=== PATIENT | female | born 2000 | race Caucasian/White ===

== ENCOUNTER 2024-01-04 00:49 | Emergency (ER) | payer OTHER, SELFPAY ==
--- NOTE | 2024-01-04 | ECG_ITS ---
Test Reason : chest pain Blood Pressure : / mmHG Vent. Rate : 089 BPM Atrial Rate : 089 BPM P-R Int : 130 ms QRS Dur : 072 ms QT Int : 354 ms P-R-T Axes : 055 064 036 degrees QTc Int : 430 ms Normal sinus rhythm Nonspecific ST abnormality Abnormal ECG No previous ECGs available Referred By: Generic ED Physician Electronically Signed By:Acosta Cano
--- NOTE | ~2024-01-04 | XR_ITS ---
EXAMINATION: XR CHEST CLINICAL INFORMATION: Chest pain. Pain on inspiration. COMPARISON: None available. TECHNIQUE: 2 views of the chest were obtained. FINDINGS: Normal appearance of the cardiomediastinal structures. No effusions or pneumothoraces. Normal pattern of pulmonary vasculature. No focal pulmonary consolidation. No peribronchial wall thickening. No skeletal abnormalities identified. XR/XR chest 2V IMPRESSION: Normal chest. Lungs clear. No pneumothoraces. Electronically signed by: Chaparro Lewis MD 01/04/2024 02:00 AM BUNNY BYNUM
[2024-01-04 01:01] VITALS: BP 135/76; PULSE 93; RESP 18; TEMP 37.1; O2SAT 99; BMI 32.3
[2024-01-04 01:33] LABS: MANUAL DIFF FLAG NO
[2024-01-04 01:47] LABS: Alanine Aminotransferase 14 U/L (0-31); Albumin Level 3.7 g/dL (3.5-5.0); Alkaline Phosphatase 78 U/L (39-117); Anion Gap 14 (12-20); Aspartate Amino Transferase 18 U/L (5-31); Bilirubin Total 0.2 mg/dL (0.0-1.0); Blood Urea Nitrogen 6 mg/dL (9-16); Calcium 8.9 mg/dL (8.4-10.2); Carbon Dioxide 23 mmol/L (22-29); Chloride 108 mmol/L (96-108); Creatinine Clr Calc Pharmacy 140.5; Estimated Glomerular Filt Rate > 60; Glucose Random 101 mg/dL (60-115); Potassium 3.8 mmol/L (3.3-5.1); Sodium 141 mmol/L (135-145); Total Protein 6.7 g/dL (6.5-8.0)
[2024-01-04 01:48] LABS: Basophils Percent Auto 0.4 % (0-2); Eosinophils Absolute Auto 0.3 X10*3/uL (0.0-0.4); Eosinophils Percent Auto 3.8 % (0-4); Hematocrit 34.9 % (37.0-47.0); Hemoglobin 11.9 g/dl (12.0-16.0); Imm Gran Abs Auto 0.01 X10*3/uL (0.00-0.03); Imm Gran Pct Auto 0.1 % (0.0-0.4); Lymphocytes Absolute Auto 2.6 X10*3/uL (1.2-4.9); Lymphocytes Percent Auto 33.8 % (20-40); Mean Corpuscular HGB Conc 34.1 g/dl (31.0-35.0); Mean Corpuscular Hemoglobin 29.1 pg (27.0-33.0); Mean Corpuscular Volume 85.3 fL (80.0-98.0); Monocytes Absolute Auto 0.7 X10*3/uL (0.1-1.2); Monocytes Percent Auto 8.8 % (2-11); Neutrophils Absolute Auto 4.1 x10*3/uL (2.0-8.3); Neutrophils Percent Auto 53.1 % (45-73); Platelet Count 258 X10*3/uL (160-400); Red Blood Count 4.09 X10*6/uL (4.20-5.50); Red Cell Distribution Width 12.5 % (11.0-16.0); White Blood Count 7.8 X10*3/uL (4.8-10.8)
[2024-01-04 02:03] LABS: Troponin-I High Sensitivity < 2.7 ng/L (<3.5-17.0)
[2024-01-04 02:19] LABS: Influenza A PCR NEGATIVE (Negative); Influenza B PCR NEGATIVE (Negative); Resp Syncy Virus RNA Qual PCR NEGATIVE (Negative); SARS COV2 PCR INHOUSE NEGATIVE (Negative)
[2024-01-04 04:00] VITALS: BP 107/82; PULSE 72; RESP 16; TEMP 36.9; O2SAT 95
--- NOTE | 2024-01-04 04:37 | ED.CHESTPAIN ---
HPI - Chest Pain General Chief Complaint: Chest Pain Stated Complaint: diff breathing, chest pain Time Seen by Provider: 01/04/24 04:30 Source: patient and family Mode of arrival: ambulatory Limitations: no limitations History of Present Illness ED Provider: Dr. Elif Dougherty HPI narrative: Patient comes to the emergency room complaining of 4 days of chest congestion, bilateral chest pain with deep inspirations. Subjective fever. Sometimes hurts taking big breaths. Patient denies any coughing. Denies shortness of breath. Related Data Previous Rx's ?Medication ?Instructions ?Recorded ibuprofen 600 mg tablet 600 mg PO TID PRN fever or pain 01/04/24 #30 tabs Allergies Allergy/AdvReac Type Severity Reaction Status Date / Time amoxicillin Allergy Rash Verified 01/04/24 01:06 cefprozil [From Cefzil] Allergy Rash Verified 01/04/24 01:06 Review of Systems Review of Systems: Constitutional : No Weight loss, No Fever, No Chills, No Night Sweats, No Fatigue, No Malaise ENT/Mouth : No Hearing loss, No Ear Pain, complaining of mild Nasal Congestion, No Sinus Pain, No Hoarseness, No sore throat, No Rhinorrhea, No Swallowing Difficulty Eyes: No Eye Pain, No Swelling, No Redness, No Foreign Body, No Discharge, No Vision Changes Cardiovascular : No Chest Pain, No SOB, No Dyspnea on Exertion, No Orthopnea, No Edema, No Palpitations Respiratory : Denies coughing, complaining of discomfort taking big breaths, Gastrointestinal : No Nausea, No Vomiting, No Diarrhea, No Constipation, No abdominal Pain, No Hematochezia, No Melena Genitourinary : no irregular bleeding, No Dysuria, No Urinary Frequency, No Hematuria, No Urinary Incontinence, No Urgency, No Flank Pain, No Urinary Flow Changes, No Hesitancy Musculoskeletal : No joint pain, No Myalgias, No Joint Swelling Skin : No Skin Lesions, No rash Neuro : No Weakness, No Numbness, No Paresthesias, No Loss of Consciousness, No Dizziness, No Headache Psych : No Anxiety/Panic, No Depression, No SI/HI/AH/VH, No Social Issues, Heme/Lymph: No Bruising, No Bleeding,No Lymphadenopathy Endocrine : No Polyuria, No Polydipsia, No Temperature Intolerance PMFSH Social History Social History Advance Directives: No Advance Directives Information Provided: No Do you have a plan to hurt others: No Plan Physical Exam Vital Signs: Vital Signs: Last Vital Signs Temp 98.7 F 01/04/24 01:01 Pulse 93 01/04/24 01:01 Resp 18 01/04/24 01:01 BP 135/76 01/04/24 01:01 Pulse Ox 99 01/04/24 01:01 O2 Del Method Room Air 01/04/24 01:01 BMI result Body Mass Index 32.3 Const: Other: Appearance: Alert. Oriented X3. No acute distress. Eyes: Pupils equal, round and reactive to light. ENT: Pharynx normal. Neck: Normal inspection. Neck supple. No lymph nodes noted. No crepitus CVS: Normal heart rate and rhythm. Pulses normal. Normal S1 and S2 Respiratory: No respiratory distress. Breath sounds normal. No Wheezing. No rales Abdomen: Soft and nontender. No rigidity. No distention. Skin: Skin warm and dry. Normal skin color. Normal skin turgor. Extremities: No lower extremity edema. No Lacerations. No Rash Neuro: Oriented X 3. No motor deficit. No sensory deficit. Moving all extremities. No slurred speech. CN 2 through 12 grossly intact Psych: calm, cooperative, normal affect Medical Decision Making Medical Decision Making [facility] Narrative: My interpretation of labs, normal hematology chemistry and serology, patient tested negative for RSV COVID and flu -chest x-ray: No acute abnormality. -discussed with the patient that she likely has pleurisy. -vital signs within normal limits Lab Data [facility] Lab Attestation statement: I reviewed the patient's lab results. 01/04/24 01:26 01/04/24 01:26 Labs: Lab Results 01/04/24 01/04/24 Range/Units 01:26 01:27 WBC 7.8 (4.8-10.8) X10*3/uL RBC 4.09 L (4.20-5.50) X10*6/uL Hgb 11.9 L (12.0-16.0) g/dl Hct 34.9 L (37.0-47.0) % MCV 85.3 (80.0-98.0) fL MCH 29.1 (27.0-33.0) pg MCHC 34.1 (31.0-35.0) g/dl RDW 12.5 (11.0-16.0) % Plt Count 258 (160-400) X10*3/uL MPV 10.0 (9.4-12.3) fL Immature Gran % (Auto) 0.1 (0.0-0.4) % Neut % (Auto) 53.1 (45-73) % Lymph % (Auto) 33.8 (20-40) % [place] % (Auto) 8.8 (2-11) % Eos % (Auto) 3.8 (0-4) % Baso % (Auto) 0.4 (0-2) % Lymph # (Auto) 2.6 (1.2-4.9) X10*3/uL [place] # (Auto) 0.7 (0.1-1.2) X10*3/uL Eos # (Auto) 0.3 (0.0-0.4) X10*3/uL Baso # (Auto) 0.0 (0.0-0.2) X10*3/uL Abs Immat Gran (auto) 0.01 (0.00-0.03) X10*3/uL Absolute Neuts (auto) 4.1 (2.0-8.3) x10*3/uL Absolute Nucleated RBC 0.000 (0.0-0.012) X10*3/uL Nucleated RBC % (auto) 0.0 (0.0-0.2) /100WBC Sodium 141 (135-145) mmol/L Potassium 3.8 (3.3-5.1) mmol/L Chloride 108 (96-108) mmol/L Carbon Dioxide 23 (22-29) mmol/L Anion Gap 14 (12-20) BUN 6 L (9-16) mg/dL Creatinine 0.64 (0.5-1.4) mg/dL Estim Creat Clear Calc 140.5 Estimated GFR > 60 Random Glucose 101 (60-115) mg/dL Calcium 8.9 (8.4-10.2) mg/dL Total Bilirubin 0.2 (0.0-1.0) mg/dL AST 18 (5-31) U/L ALT 14 (0-31) U/L Alkaline Phosphatase 78 (39-117) U/L Troponin I High Sens < 2.7 (<3.5-17.0) ng/L Total Protein 6.7 (6.5-8.0) g/dL Albumin 3.7 (3.5-5.0) g/dL Influenza Type A (PCR) NEGATIVE (Negative) Influenza Type B (PCR) NEGATIVE (Negative) RSV RNA Qual (PCR) NEGATIVE (Negative) SARS-CoV-2 RNA (RT-PCR) NEGATIVE (Negative) Independent Interpretation I performed an independent interpretation of an: Plain X-Ray Radiology Impression Discussion of test interpretation with radiology: I have reviewed the radiologist's reading. Radiologist Impression: Normal appearance of the cardiomediastinal structures. No effusions or pneumothoraces. Normal pattern of pulmonary vasculature. No focal pulmonary consolidation. No peribronchial wall thickening. No skeletal abnormalities identified. XR/XR chest 2V IMPRESSION: Normal chest. Lungs clear. No pneumothoraces. Discharge Plan Discharge Clinical Impression: Pleurisy Patient Disposition: Home, Self-Care Instructions: Pleurisy (ED) Additional Instructions: Please follow-up with your primary care physician tomorrow. If you have any worsening or new symptoms, please return to the emergency room or call 911 Prescriptions: New ibuprofen 600 mg tablet 600 mg PO TID PRN (Reason: fever or pain) Qty: 30 0RF Stand Alone Forms: Work/School Release Print Language: Sudanese
[2024-01-04 04:50] VITALS: BP 107/82; PULSE 72; RESP 16; TEMP 36.9; O2SAT 95
== END 2024-01-04 04:50 | disposition home or self-care (01) ==
PROVIDERS: Emergency Provider Emergency Medicine
DX: R09.1 Pleurisy (principal); R07.89 Other chest pain; R50.9 Fever, unspecified; R06.02 Shortness of breath; Z03.818 Encounter for observation for suspected exposure to other biological agents ruled out; Z79.899 Other long term (current) drug therapy
CPT/HCPCS: 0241U; 36415; 71046; 80053; 84484; 85025; 93005; 99284

== ENCOUNTER → 2024-01-04 01:09 | Outpatient (BNV) | payer OTHER, SELFPAY | PROVIDERS: Emergency Provider Emergency Medicine; Visit Provider Internal Medicine Cardiovascular Disease | DX: R07.9 Chest pain, unspecified (principal) | CPT/HCPCS: 93010 ==

== ENCOUNTER 2024-07-16 02:17 | Emergency (ER) | payer OTHER, SELFPAY ==
--- NOTE | ~2024-07-16 | CT_ITS ---
CLINICAL HISTORY: epigastric pain CT abdomen and pelvis with contrast Comparison: None Findings: Distended stomach with retained contents, nonspecific possibly physiologic. However fluid distended slightly thick-walled small bowel loops. Inflammatory changes in the pericecal region with liquid stool and mild wall thickening concerning for potential appendicitis, although discrete appendix is not identified. Other acute nonspecific enterocolitis considered as well, Including potential inflammatory bowel disease. No features of acute diverticulitis. No free fluid or free air. Lung bases clear. Heart size normal. Liver, gallbladder, biliary tree, pancreas, spleen, adrenals, kidneys and aorta are normal. Left kidney incompletely rotated. No pathologic adenopathy. Urinary bladder and pelvic viscera intact. Bones and soft tissues unremarkable. Impression: Distended stomach with retained contents, nonspecific. Fluid distended mildly thick-walled small bowel loops. Liquid stool in the colon. Correlation for nonspecific enterocolitis including inflammatory bowel disease. Changes more pronounced at the cecum and terminal ileum. Discrete appendix is not identified although if appendix remains, possibility of appendicitis considered. Consider follow-up CT with water-soluble oral contrast. This document has been electronically signed by: Maxwell Lee MD on 07/16/2024 06:14:35
[2024-07-16 02:19] VITALS: BP 141/84; PULSE 124; RESP 20; TEMP 37.3; O2SAT 97; BMI 31.9
--- NOTE | 2024-07-16 03:02 | ECG_ITS ---
Test Reason : ABD PAIN Blood Pressure : */* mmHG Vent. Rate : 92 BPM Atrial Rate : 92 BPM P-R Int : 140 ms QRS Dur : 74 ms QT Int : 362 ms P-R-T Axes : 68 67 43 degrees QTcB Int : 447 ms Normal sinus rhythm Normal ECG When compared with ECG of 04-Jan-2024 01:09, No significant change was found Referred By: Elif Dougherty Electronically Signed By: SYLVIA THOMPSON MD
[2024-07-16 03:07] LABS: MANUAL DIFF FLAG NO
[2024-07-16 03:08] LABS: Basophils Percent Auto 0.3 % (0-2); Eosinophils Percent Auto 0.4 % (0-4); Hematocrit 39.8 % (37.0-47.0); Hemoglobin 13.7 g/dl (12.0-16.0); Imm Gran Abs Auto 0.02 X10*3/uL (0.00-0.03); Imm Gran Pct Auto 0.2 % (0.0-0.4); Lymphocytes Absolute Auto 1.4 X10*3/uL (1.2-4.9); Lymphocytes Percent Auto 13.6 % (20-40); Mean Corpuscular HGB Conc 34.4 g/dl (31.0-35.0); Mean Corpuscular Hemoglobin 28.4 pg (27.0-33.0); Mean Corpuscular Volume 82.6 fL (80.0-98.0); Mean Platelet Volume 9.4 fL (9.4-12.3); Monocytes Absolute Auto 0.5 X10*3/uL (0.1-1.2); Monocytes Percent Auto 4.9 % (2-11); Neutrophils Absolute Auto 8.1 x10*3/uL (2.0-8.3); Neutrophils Percent Auto 80.6 % (45-73); Platelet Count 269 X10*3/uL (160-400); Red Blood Count 4.82 X10*6/uL (4.20-5.50); Red Cell Distribution Width 12.8 % (11.0-16.0); White Blood Count 10.1 X10*3/uL (4.8-10.8)
--- NOTE | 2024-07-16 03:14 | ED_ITS ---
HPI - Nausea/Vomiting/Diarrhea General Chief complaint: Nausea/Vomiting/Diarrhea Stated complaint: abd pain/chest pain Time Seen by Provider: 07/16/24 02:59 Source: patient Mode of arrival: ambulatory Limitations: no limitations History of Present Illness ED Provider: Dr. Elif Dougherty HPI Narrative: Patient comes to the emergency room complaining of nausea vomiting and diarrhea that started approximately 12 hours ago. Patient states that any thing that she tries to eat or drink, she vomits or gets diarrhea very shortly after. Patient states that she recently finished 5 courses of antibiotics for strep and Haemophilus influenzae. Patient denies any fever or chills. Patient complaining of epigastric pain, constant, nonradiating, attempts gets worse and then diminishes. Related Data Previous Rx's ?Medication ?Instructions ?Recorded ibuprofen 600 mg tablet 600 mg PO TID PRN fever or pain 01/04/24 #30 tabs loperamide 2 mg tablet 2 mg PO Q4H PRN loose stool #20 07/16/24 tabs ondansetron 4 mg disintegrating 4 mg PO Q6H PRN nausea and 07/16/24 tablet vomiting #20 tabs prochlorperazine maleate 5 mg 5 mg PO TID PRN nausea and 07/16/24 tablet (Compazine) vomiting #14 tabs Allergies Allergy/AdvReac Type Severity Reaction Status Date / Time amoxicillin Allergy Rash Verified 07/16/24 02:21 cefprozil [From Cefzil] Allergy Rash Verified 07/16/24 02:21 Review of Systems 2 Review of Systems: Constitutional : No Weight loss, No Fever, No Chills, No Night Sweats, No Fatigue, No Malaise ENT/Mouth : No Hearing loss, No Ear Pain, No Nasal Congestion, No Sinus Pain, No Hoarseness, No sore throat, No Rhinorrhea, No Swallowing Difficulty Eyes: No Eye Pain, No Swelling, No Redness, No Foreign Body, No Discharge, No Vision Changes Cardiovascular : No Chest Pain, No SOB, No Dyspnea on Exertion, No Orthopnea, No Edema, No Palpitations Respiratory : No Cough, No Sputum, No Wheezing, No Smoke Exposure, No Dyspnea Gastrointestinal : Complaining of nausea vomiting and diarrhea, complaining of epigastric pain Genitourinary : no irregular bleeding, No Dysuria, No Urinary Frequency, No Hematuria, No Urinary Incontinence, No Urgency, No Flank Pain, No Urinary Flow Changes, No Hesitancy Musculoskeletal : No joint pain, No Myalgias, No Joint Swelling Skin : No Skin Lesions, No rash Neuro : No Weakness, No Numbness, No Paresthesias, No Loss of Consciousness, No Dizziness, No Headache Psych : No Anxiety/Panic, No Depression, No SI/HI/AH/VH, No Social Issues, Heme/Lymph: No Bruising, No Bleeding,No Lymphadenopathy Endocrine : No Polyuria, No Polydipsia, No Temperature Intolerance [facility] Past Medical History Medical History (Updated 07/16/24 @ 07:21 by Elif Dougherty MD) IBS (irritable bowel syndrome) Social History Social History Smoked in Last 30 Days: No Use of substances other than those prescribed or required for medical reasons: No Advance Directives: No Advance Directives Information Provided: No Patient : No Physical Exam 2 Vital Signs: Vital Signs: Last Vital Signs Temp 98.4 F 07/16/24 06:18 Pulse 102 H 07/16/24 06:18 Resp 18 07/16/24 06:18 BP 104/60 07/16/24 06:18 Pulse Ox 98 07/16/24 06:18 O2 Del Method Room Air 07/16/24 06:18 BMI result Body Mass Index 31.9 Const: Other: Appearance: Alert. Oriented X3. No acute distress. Eyes: Pupils equal, round and reactive to light. ENT: Pharynx normal. Neck: Normal inspection. Neck supple. No lymph nodes noted. No crepitus CVS: Normal heart rate and rhythm. Pulses normal. Normal S1 and S2 Respiratory: No respiratory distress. Breath sounds normal. No Wheezing. No rales Abdomen: Soft , mild tenderness to palpation in the epigastric area, no rebound or guarding, No rigidity. No distention. Skin: Skin warm and dry. Normal skin color. Normal skin turgor. Extremities: No lower extremity edema. No Lacerations. No Rash Neuro: Oriented X 3. No motor deficit. No sensory deficit. Moving all extremities. No slurred speech. CN 2 through 12 grossly intact Psych: calm, cooperative, normal affect Course Course Course Narrative: Patient receiving IV fluids, Zofran, morphine, Pepcid Patient has history of finishing 5 courses of antibiotics within the last few months. Patient states that she has diarrhea but it is not copious. If we are able to obtain a sample, we will check for C diff however, the story itself it is not sounding so far very convincing for a C diff infection Medications Administered Discontinued Medications Generic Name Dose Route Start Last Admin Trade Name Kb PRN Reason Stop Dose Admin Famotidine 20 mg 07/16/24 03:12 07/16/24 03:40 Famotidine/Pf 20 Mg/2 Ml Vial IVPUSH 07/16/24 03:13 20 mg ONCE ONE Administration Lactated Ringer's 2,000 mls @ 999 mls/hr 07/16/24 03:30 07/16/24 05:40 Lr IV 07/16/24 05:30 Infused .Q2H1M MILLIE Infusion Iohexol 85 ml 07/16/24 04:06 07/16/24 04:10 Iohexol 350 Mg/Ml 100 Ml Infus..Btl IV 07/16/24 04:07 85 ml ONCE ONE Administration Loperamide HCl 4 mg 07/16/24 03:14 07/16/24 05:38 Loperamide Hcl 2 Mg Capsule PO 07/16/24 03:15 4 mg ONCE ONE Administration Morphine Sulfate 2 mg 07/16/24 03:13 07/16/24 03:40 Morphine Sulfate 2 Mg/Ml Cartridge IVPUSH 07/16/24 03:14 2 mg ONCE ONE Administration Protocol Ondansetron HCl 4 mg 07/16/24 03:12 07/16/24 03:38 Ondansetron Hcl 4 Mg/2 Ml Vial IVPUSH 07/16/24 03:13 4 mg ONCE ONE Administration Prochlorperazine Edisylate 10 mg 07/16/24 04:22 07/16/24 04:26 Prochlorperazine Edisylate 10 Mg/2 Ml Vial IVPUSH 07/16/24 04:23 10 mg ONCE ONE Administration Medical Decision Making Medical Decision Making MDM Narrative: My interpretation of labs: No significant abnormality in patient's hematology and chemistry, normal LFTs, normal lipase, hCG negative, urinalysis negative for UTI C diff toxin negative CT scan of the abdomen: Distended stomach with retained contents, nonspecific. There is liquid stool in the colon, patient known to have diarrhea and patient also has history of IBS. In the CT scan than mentioned that they could not see them appendix, under could be a possibility of appendicitis. However, patient has history of appendectomy. Also, patient has no pain whatsoever in the lower quadrants. No rebound or guarding. Patient's white blood cell count normal. Appendicitis or remaining appendix/appendicitis is not suspected. Patient states that after Zofran and medication for diarrhea, she is feeling much better and is asymptomatic Patient likely had IBS versus gastroenteritis, versus viral illness Patient feels much better and would like to be discharged home. Differential Diagnosis Differential Diagnoses: The differential diagnosis associated with the presentation includes (As above) Admission/Observation Consideration of admission/observation: Escalation of care including admission/observation considered (Given patient's past medical history and presentation, observation was considered) Lab Data MDM Lab Attestation statement: I reviewed the patient's lab results. 07/16/24 03:01 07/16/24 03:01 Labs: Lab Results 07/16/24 07/16/24 Range/Units 03:01 05:36 WBC 10.1 (4.8-10.8) X10*3/uL RBC 4.82 (4.20-5.50) X10*6/uL Hgb 13.7 (12.0-16.0) g/dl Hct 39.8 (37.0-47.0) % MCV 82.6 (80.0-98.0) fL MCH 28.4 (27.0-33.0) pg MCHC 34.4 (31.0-35.0) g/dl RDW 12.8 (11.0-16.0) % Plt Count 269 (160-400) X10*3/uL MPV 9.4 (9.4-12.3) fL Immature Gran % (Auto) 0.2 (0.0-0.4) % Neut % (Auto) 80.6 H (45-73) % Lymph % (Auto) 13.6 L (20-40) % [place] % (Auto) 4.9 (2-11) % Eos % (Auto) 0.4 (0-4) % Baso % (Auto) 0.3 (0-2) % Lymph # (Auto) 1.4 (1.2-4.9) X10*3/uL [place] # (Auto) 0.5 (0.1-1.2) X10*3/uL Eos # (Auto) 0.0 (0.0-0.4) X10*3/uL Baso # (Auto) 0.0 (0.0-0.2) X10*3/uL Abs Immat Gran (auto) 0.02 (0.00-0.03) X10*3/uL Absolute Neuts (auto) 8.1 (2.0-8.3) x10*3/uL Absolute Nucleated RBC 0.000 (0.0-0.012) X10*3/uL Nucleated RBC % (auto) 0.0 (0.0-0.2) /100WBC Sodium 139 (135-145) mmol/L Potassium 4.3 (3.3-5.1) mmol/L Chloride 105 (96-108) mmol/L Carbon Dioxide 23 (22-29) mmol/L Anion Gap 15 (12-20) BUN 10 (9-16) mg/dL Creatinine 0.66 (0.5-1.4) mg/dL Estim Creat Clear Calc 135.2 Estimated GFR > 60 Random Glucose 103 (60-115) mg/dL Calcium 9.0 (8.4-10.2) mg/dL Total Bilirubin 0.5 (0.0-1.0) mg/dL Direct Bilirubin 0.1 (0.0-0.5) mg/dL AST 35 H (5-31) U/L ALT 18 (0-31) U/L Alkaline Phosphatase 95 (39-117) U/L Total Protein 7.5 (6.5-8.0) g/dL Albumin 3.9 (3.5-5.0) g/dL Lipase 21 (8-78) U/L Beta HCG, Quant < 2 mIU/mL Urine Color Yellow Urine Appearance Clear Urine pH 6.0 (5.0-9.0) Ur Specific [place] >= 1.030 H (1.005-1.025) Urine Protein Negative (Neg-Trace) mg/dL Urine Glucose (UA) Negative (Negative) mg/dL Urine Ketones 15 (Negative) mg/dL Urine Blood Negative (Negative) Urine Nitrite Negative (Negative) Ur Leukocyte Esterase Negative (Negative) Urine RBC 0-2 (0-2) /HPF Urine WBC 0-5 (0-5) /HPF Ur Squamous Epith Cells 3-5 (0-2) /HPF Urine Bacteria Trace (None Seen) Hyaline Casts 0-2 (0-2) /LPF C. difficile Tox B Gene NEGATIVE (Negative) Independent Interpretation I performed an independent interpretation of an: CT Scan Radiology Impression Discussion of test interpretation with radiology: I have reviewed the radiologist's reading. Radiologist Impression: Distended stomach with retained contents, nonspecific possibly physiologic. However fluid distended slightly thick-walled small bowel loops. Inflammatory changes in the pericecal region with liquid stool and mild wall thickening concerning for potential appendicitis, although discrete appendix is not identified. Other acute nonspecific enterocolitis considered as well, Including potential inflammatory bowel disease. No features of acute diverticulitis. No free fluid or free air. Lung bases clear. Heart size normal. Liver, gallbladder, biliary tree, pancreas, spleen, adrenals, kidneys and aorta are normal. Left kidney incompletely rotated. No pathologic adenopathy. Urinary bladder and pelvic viscera intact. Bones and soft tissues unremarkable. Impression: Distended stomach with retained contents, nonspecific. Fluid distended mildly thick-walled small bowel loops. Liquid stool in the colon. Correlation for nonspecific enterocolitis including inflammatory bowel disease. Changes more pronounced at the cecum and terminal ileum. Discrete appendix is not identified although if appendix remains, possibility of appendicitis considered. Consider follow-up CT with water-soluble oral contrast. Independent Historian Clinical information obtained from an independent historian. History obtained from or confirmed by: Parent Critical Care Time Critical Care Time Critical Care Time: Yes Total Critical Care Time: 35 Attestation: I have personally provided critical care time. Time includes review of lab data, radiology results, discussion with consultants, and monitoring for potential decompensation. Intervention performed as documented. Discharge Plan Discharge Clinical Impression: Nausea vomiting and diarrhea, Acute upper abdominal pain Patient Disposition: Home, Self-Care Instructions: Acute Nausea and Vomiting (DC), Acute Diarrhea (ED), Abdominal Pain (ED) Additional Instructions: Please follow-up with your primary care physician tomorrow. If you have any worsening or new symptoms, please return to the emergency room or call 911 Prescriptions: New ondansetron 4 mg tablet,disintegrating 4 mg PO Q6H PRN (Reason: nausea and vomiting) Qty: 20 0RF prochlorperazine maleate [Compazine] 5 mg tablet 5 mg PO TID PRN (Reason: nausea and vomiting) Qty: 14 0RF Rx Instructions: Use only if Zofran does not work to help control the nausea/vomiting loperamide 2 mg tablet 2 mg PO Q4H PRN (Reason: loose stool) Qty: 20 0RF Rx Instructions: administer after each loose stool until symptoms controlled; do not exceed 8 mg per 24 hrs No Action ibuprofen 600 mg tablet 600 mg PO TID PRN (Reason: fever or pain) Qty: 30 0RF Stand Alone Forms: Work/School Release Print Language: Rw[place]an
[2024-07-16] MEDS: ondansetron HCL 4 MG/2 ML VIAL IVPUSH (03:38)
[2024-07-16] MEDS: Lactated Ringers 2,000 ML 999 ML IV (03:38)
[2024-07-16 03:40] VITALS: RESP 18
[2024-07-16] MEDS: Morphine Sulfate 2 MG/ML CARTRIDGE IVPUSH (03:40)
[2024-07-16] MEDS: Famotidine/PF 20 MG/2 ML VIAL IVPUSH (03:40)
[2024-07-16 03:51] VITALS: BP 107/54; PULSE 99; RESP 16; TEMP 36.9; O2SAT 100
[2024-07-16 03:56] LABS: Alanine Aminotransferase 18 U/L (0-31); Albumin Level 3.9 g/dL (3.5-5.0); Alkaline Phosphatase 95 U/L (39-117); Anion Gap 15 (12-20); Aspartate Amino Transferase 35 U/L (5-31); Bilirubin Direct 0.1 mg/dL (0.0-0.5); Bilirubin Total 0.5 mg/dL (0.0-1.0); Blood Urea Nitrogen 10 mg/dL (9-16); Carbon Dioxide 23 mmol/L (22-29); Chloride 105 mmol/L (96-108); Creatinine Clr Calc Pharmacy 135.2; Estimated Glomerular Filt Rate > 60; Glucose Random 103 mg/dL (60-115); HCG Quantitative < 2 mIU/mL; Lipase 21 U/L (8-78); Potassium 4.3 mmol/L (3.3-5.1); Sodium 139 mmol/L (135-145); Total Protein 7.5 g/dL (6.5-8.0)
--- NOTE | 2024-07-16 03:58 | MHC.EDTECH ---
This pct assumed care of Patient around 0300 ,vitals taken ,ekg taken and was read by Provider ,Patient awake watching television ,Patient mom at bedside .Plan of care continue .
[2024-07-16] MEDS: iohexoL 350 MG/ML 100 ML INFUS..BTL 85 ML IV (04:10)
[2024-07-16] MEDS: Prochlorperazine Edisylate 10 MG/2 ML VIAL IVPUSH (04:26)
[2024-07-16] MEDS: Loperamide HCl 2 MG CAPSULE 4 MG PO (05:38)
[2024-07-16 05:44] LABS: Appearance Urine Clear; Color Urine Yellow; Glucose Urine UA Negative (Negative); Leukocyte Esterase Urine Negative (Negative); Nitrite Urine Negative (Negative); Specific Gravity - Urine >= 1.030 (1.005-1.025); Urine Blood Negative (Negative); Urine Ketones 15 mg/dL (Negative); Urine Protein Negative (Neg-Trace)
[2024-07-16 05:49] LABS: Bacteria Urine Trace (None Seen); Hyaline Casts Urine 0-2 /LPF (0-2); RBC Urine 0-2 /HPF (0-2); WBC Urine 0-5 /HPF (0-5)
[2024-07-16 06:18] VITALS: BP 104/60; PULSE 102; RESP 18; TEMP 36.9; O2SAT 98
[2024-07-16 06:45] LABS: CDiff Gene PCR NEGATIVE (Negative)
[2024-07-16 07:18] VITALS: BP 107/59; PULSE 91; RESP 14; TEMP 36.7; O2SAT 97
[2024-07-16 07:34] VITALS: BP 107/59; PULSE 91; RESP 14; TEMP 36.7; O2SAT 97
== END 2024-07-16 07:36 | disposition home or self-care (01) ==
PROVIDERS: Emergency Provider Emergency Medicine; PCP Radiology Vascular & Interventional Radiology
DX: R10.10 Upper abdominal pain, unspecified (principal); R11.2 Nausea with vomiting, unspecified; R19.7 Diarrhea, unspecified
CPT/HCPCS: 36415; 74177; 80048; 80076; 81001; 83690; 84702; 85025; 87493; 93005; 96361; 96374; 96375; 99284; 99285; J0737; J1308; J2270; J2405; J7120; Q9967

== ENCOUNTER → 2024-07-16 03:02 | Outpatient (BNV) | payer OTHER, SELFPAY | PROVIDERS: Emergency Provider Emergency Medicine; PCP Radiology Vascular & Interventional Radiology; Visit Provider Internal Medicine Cardiovascular Disease | DX: R10.9 Unspecified abdominal pain (principal) | CPT/HCPCS: 93010 ==

== ENCOUNTER → 2024-07-16 03:12 | Outpatient (BNV) | payer OTHER, SELFPAY | PROVIDERS: Emergency Provider Emergency Medicine; PCP Radiology Vascular & Interventional Radiology; Visit Provider Radiology Diagnostic Radiology | DX: R19.7 Diarrhea, unspecified (principal) | CPT/HCPCS: 74177 ==

== ENCOUNTER 2025-02-07 13:59 | Emergency (ER) | payer OTHER, SELFPAY ==
--- OUTSIDE RECORDS SUMMARY | 2023-11-27 15:58 | XMS_ITS | Encounter Summary ---
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 Generating [employer] Name Role Phone Dinorah Bowden MD Primary Care Provider [phone] Encounter Details Date Type Department Care Team (Late st Contact Info) Description 11/27/2023 4:58 PM EDT Hospital Encounter TH HISTORIC ENCOUNTERS EASTERN CONVERSION ONLY Leola Lopez MD [address] [place] [address] Social History Tobacco Use Types Packs/Day Years Used Date Smoking Tobacco: Never Assessed Comments No Sex and Gender Information Value Date Recorded Sex Assigned at Not on file Legal Sex Female 11:46 AM EST Gender Identity Not on file Sexual Orientation Not on file documented as of this encounter Plan of Treatment Not on file documented as of this encounter Visit Diagnoses Not on filedocumented in this encounter 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
--- NOTE | ~2025-02-07 | XR_ITS ---
EXAMINATION: XR CHEST 2 VIEWS HISTORY: coughing, chest pain COMPARISON: Comparison is made with the prior examination dated 01/04/2024. FINDINGS: PA and lateral views of the chest are submitted. The lungs are expanded and clear. There is no pleural effusion, pneumothorax, or pulmonary vascular congestion. The heart is normal in size. The bones are intact. XR/XR chest 2V IMPRESSION: No acute cardiopulmonary abnormality. Electronically signed by: Emory Mccauley MD 02/07/2025 02:24 PM BUNNY
--- NOTE | 2025-02-07 14:01 | ECG_ITS ---
Test Reason : SOB Blood Pressure : */* mmHG Vent. Rate : 116 BPM Atrial Rate : 116 BPM P-R Int : 128 ms QRS Dur : 72 ms QT Int : 310 ms P-R-T Axes : 72 55 37 degrees QTcB Int : 430 ms Sinus tachycardia Otherwise normal ECG When compared with ECG of 16-Jul-2024 03:54, No significant change was found Referred By: Jose Hyde Electronically Signed By: SYLVIA THOMPSON MD
[2025-02-07 14:08] VITALS: BP 137/94; PULSE 122; RESP 20; TEMP 36.6; O2SAT 98; BMI 31.9
--- NOTE | 2025-02-07 14:28 | ED.GENADULT ---
HPI - General Adult General Chief complaint: Upper Respiratory Symptoms Stated complaint: Chest Pain, Throwing Up Time Seen by Provider: 02/07/25 15:02 Source: patient and old records reviewed Mode of arrival: ambulatory Limitations: no limitations History of Present Illness ED Provider: ARLEY BERG narrative: 24-year-old female with past medical history of IBS she is on oral OCPs she did have her tonsils removed about a month ago. 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 This started this morning she then started to have a cough with some chest pain she noted scant hemoptysis in it. She also vomited after coughing she has never had this before. She notes no history of bleeding. She is not a smoker. She denies any other GI bleed symptoms such as bloody or black stool. She feels better now. She states she was healthy yesterday. MD complaint: Hemoptysis Onset (ago): day(s) (1) Location: chest Radiation: non-radiation Severity: moderate Quality: aching Pain Consistency: intermittent Relieving factors: none Exacerbating factors: other Associated symptoms: chest pain, cough and other Treatments prior to arrival: none Related Data Previous Rx's ?Medication ?Instructions ?Recorded ibuprofen 600 mg tablet 600 mg PO TID PRN fever or pain 01/04/24 #30 tabs loperamide 2 mg tablet 2 mg PO Q4H PRN loose stool #20 07/16/24 tabs ondansetron 4 mg disintegrating 4 mg PO Q6H PRN nausea and 07/16/24 tablet vomiting #20 tabs prochlorperazine maleate 5 mg 5 mg PO TID PRN nausea and 07/16/24 tablet (Compazine) vomiting #14 tabs Allergies Allergy/AdvReac Type Severity Reaction Status Date / Time amoxicillin Allergy Rash Verified 02/07/25 14:10 cefprozil (From Cefzil) Allergy Rash Verified 02/07/25 14:10 Review of Systems Review of Systems: Yes all other systems are reviewed and are negative PMFSH Past Medical History Attestation statement: The following information was validated with the patient. Source: old records reviewed Medical History IBS (irritable bowel syndrome) Social History Social History (Updated 02/07/25 @ 15:08 by Skye De La Fuente DO) Patient Tobacco Use Status: Never used Tobacco Advance Directives: No Advance Directives Information Provided: Yes Do you have a plan to hurt others: No Plan Physical Exam ED Vital Signs: Vital Signs - 24 hr 02/07/25 14:08 Temperature 98 F Pulse Rate 122 H Respiratory Rate 20 Blood Pressure 137/94 H Pulse Oximetry 98 Oxygen Delivery Method Room Air BMI result Body Mass Index 31.9 Appearance: Alert. Oriented X3. No acute distress. Eyes: Pupils equal, round and reactive to light. ENT: Pharynx normal. Neck: Normal inspection. Neck supple. CVS: Normal heart rate and rhythm. Pulses normal. Respiratory: No respiratory distress. Breath sounds normal. Abdomen: Soft and nontender. Skin: Skin warm and dry. Normal skin color. Normal skin turgor. Extremities: No lower extremity edema. No calf ttp Neuro: Oriented X 3. No motor deficit. No sensory deficit. Course Course Course Narrative: RmE: 23-year-old female presents to ED for coughing, chest pain, body aches, coughing up blood and chills which began today. 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 Labs EKG chest x-ray swabs ordered Medical Decision Making Medical Decision Making MDM Narrative: 21-year-old female on OCPs with a past medical history of IBS she notes she started to feel sick today with upper respiratory symptoms not feeling well then noted chest pain with the cough she had some scant hemoptysis she has no risk factors for hemoptysis it seems atypical for bronchitis given this started today it is not as if she had a prolonged coughing illness for the last 7 days. She is low probability for PE I am going to obtain a D-dimer. She has mild tachycardia but no hypoxia no signs of DVT. Her pain was associated with cough. It could be bronchitis, viral syndrome, mild hemoptysis she is reliable I will DC home with viral illness and supportive care Differential Diagnosis Differential Diagnoses: The differential diagnosis associated with the presentation includes bronchitis, viral syndrome, mild hemoptysis Admission/Observation Consideration of admission/observation: Escalation of care including admission/observation considered Vital signs and labs reassuring negative workup for bronchitis and PE Lab Data [facility] [place] Lab Attestation statement: I reviewed the patient's lab results. 02/07/25 14:37 02/07/25 14:37 Labs: Lab Results 02/07/25 Range/Units 14:37 WBC 10.6 (4.8-10.8) X10*3/uL RBC 4.67 (4.20-5.50) X10*6/uL Hgb 12.9 (12.0-16.0) g/dl Hct 38.6 (37.0-47.0) % MCV 82.7 (80.0-98.0) fL MCH 27.6 (27.0-33.0) pg MCHC 33.4 (31.0-35.0) g/dl RDW 13.4 (11.0-16.0) % Plt Count 368 D (160-400) X10*3/uL MPV 9.5 (9.4-12.3) fL Immature Gran % (Auto) 0.3 (0.0-0.4) % Neut % (Auto) 73.0 (45-73) % Lymph % (Auto) 19.1 L (20-40) % [place] % (Auto) 5.4 (2-11) % Eos % (Auto) 1.4 (0-4) % Baso % (Auto) 0.8 (0-2) % Lymph # (Auto) 2.0 (1.2-4.9) X10*3/uL [place] # (Auto) 0.6 (0.1-1.2) X10*3/uL Eos # (Auto) 0.2 (0.0-0.4) X10*3/uL Baso # (Auto) 0.1 (0.0-0.2) X10*3/uL Abs Immat Gran (auto) 0.03 (0.00-0.03) X10*3/uL Absolute Neuts (auto) 7.7 (2.0-8.3) x10*3/uL Absolute Nucleated RBC 0.000 (0.0-0.012) X10*3/uL Nucleated RBC % (auto) 0.0 (0.0-0.2) /100WBC PT 10.9 L (11.2-13.5) SEC INR 0.9 (0.9-1.1) APTT 30.2 (26.7-34.1) SEC D-Dimer High Sensitivty 170 NG/ML Sodium 138 (135-145) mmol/L Potassium 4.1 (3.3-5.1) mmol/L Chloride 108 (96-108) mmol/L Carbon Dioxide 25 (22-29) mmol/L Anion Gap 9 L (12-20) BUN 12 (9-16) mg/dL Creatinine 0.64 (0.5-1.4) mg/dL Estim Creat Clear Calc 138.3 Estimated GFR > 60 Random Glucose 102 (60-115) mg/dL Calcium 9.4 (8.4-10.2) mg/dL Total Bilirubin 0.2 (0.0-1.0) mg/dL AST 20 (5-31) U/L ALT 18 (0-31) U/L Alkaline Phosphatase 108 (39-117) U/L Troponin I High Sens < 2.7 (<3.5-17.0) ng/L Total Protein 7.7 (6.5-8.0) g/dL Albumin 4.3 (3.5-5.0) g/dL Beta HCG, Quant < 2 mIU/mL Influenza Type A (PCR) NEGATIVE (Negative) Influenza Type B (PCR) NEGATIVE (Negative) RSV RNA Qual (PCR) NEGATIVE (Negative) SARS-CoV-2 RNA (RT-PCR) NEGATIVE (Negative) S. pyogenes GrpA LIBRA Negative (Negative) Independent Interpretation I performed an independent interpretation of an: EKG and Plain X-Ray (normal ) Interpretation: Rate: 116 Rhythm: sinus tach [place]: normal Normal P waves. Normal VIVI. Normal QRS complex. ST T wave : normal no GAL[place] qTC: 430 prior studies: no acute ischemia The study has been interpreted contemporaneously by me. . Radiology Impression Discussion of test interpretation with radiology: I have reviewed the radiologist's reading. Independent Historian Clinical information obtained from an independent historian. History obtained from or confirmed by: Parent External Record Review External record reviewed: Outpatient record Prescription Management I considered prescription management with: Other Discharge Plan Discharge Clinical Impression: Upper respiratory infection, Atypical chest pain, Cough with hemoptysis Patient Disposition: Home, Self-Care Instructions: Chest Pain (DC), Upper Respiratory Infection (ED), Coughing Up Blood (Hemoptysis) (ED) Additional Instructions: At this time your chest x-ray is normal, you do not have COVID, flu, RSV your strep test was negative. Your labs are all reassuring including negative D-dimer, negative troponin, reassuring labs negative test I would avoid all aspirin products for the next 3 days Return for any worsening symptoms or concerns Suspect this is a self controlled small bleeding due to cough return for any new bleeding or worsening concerns This seems atypical for bronchitis given symptoms started today It could be too soon to tell if you have flu if you continue to have worsening upper respiratory symptoms you might want to retest in the next 48 hours Prescriptions: No Action ibuprofen 600 mg tablet 600 mg PO TID PRN (Reason: fever or pain) Qty: 30 0RF ondansetron 4 mg tablet,disintegrating 4 mg PO Q6H PRN (Reason: nausea and vomiting) Qty: 20 0RF prochlorperazine maleate [Compazine] 5 mg tablet 5 mg PO TID PRN (Reason: nausea and vomiting) Qty: 14 0RF Rx Instructions: Use only if Zofran does not work to help control the nausea/vomiting loperamide 2 mg tablet 2 mg PO Q4H PRN (Reason: loose stool) Qty: 20 0RF Rx Instructions: administer after each loose stool until symptoms controlled; do not exceed 8 mg per 24 hrs Stand Alone Forms: Work/School Release Interventions: ED Discharge Assessment Last Done: 02/07/25 15:34 Discharge Date/Time: 02/07/25 15:35 Print Language: Cook Islander
[2025-02-07 14:45] LABS: MANUAL DIFF FLAG NO
[2025-02-07 14:49] LABS: Hematocrit 38.6 % (37.0-47.0); Hemoglobin 12.9 g/dl (12.0-16.0); Imm Gran Abs Auto 0.03 X10*3/uL (0.00-0.03); Imm Gran Pct Auto 0.3 % (0.0-0.4); Lymphocytes Absolute Auto 2.0 X10*3/uL (1.2-4.9); Mean Corpuscular HGB Conc 33.4 g/dl (31.0-35.0); Mean Corpuscular Hemoglobin 27.6 pg (27.0-33.0); Mean Corpuscular Volume 82.7 fL (80.0-98.0); NRBC Abs Auto 0.000 X10*3/uL (0.0-0.012); NRBC Pct Auto 0.0 /100WBC (0.0-0.2); Platelet Count 368 X10*3/uL (160-400); Red Blood Count 4.67 X10*6/uL (4.20-5.50); White Blood Count 10.6 X10*3/uL (4.8-10.8)
[2025-02-07 14:52] LABS: INTERNATIONAL NORM RATIO 0.9 (0.9-1.1); Prothrombin Time 10.9 SEC (11.2-13.5)
[2025-02-07 14:55] LABS: Partial Thromboplastin Time 30.2 SEC (26.7-34.1)
[2025-02-07 15:05] LABS: Alanine Aminotransferase 18 U/L (0-31); Albumin Level 4.3 g/dL (3.5-5.0); Alkaline Phosphatase 108 U/L (39-117); Anion Gap 9 (12-20); Aspartate Amino Transferase 20 U/L (5-31); Blood Urea Nitrogen 12 mg/dL (9-16); Calcium 9.4 mg/dL (8.4-10.2); Carbon Dioxide 25 mmol/L (22-29); Chloride 108 mmol/L (96-108); Creatinine Clr Calc Pharmacy 138.3; Estimated Glomerular Filt Rate > 60; IDNOW Serial# 58CA691E; Potassium 4.1 mmol/L (3.3-5.1); Sodium 138 mmol/L (135-145); Strep A Nucleic Acid Negative (Negative); Total Protein 7.7 g/dL (6.5-8.0)
[2025-02-07 15:12] LABS: Troponin-I High Sensitivity < 2.7 ng/L (<3.5-17.0)
[2025-02-07 15:17] LABS: D Dimer High Sensitivity 170 NG/ML
[2025-02-07 15:22] LABS: Resp Syncy Virus RNA Qual PCR NEGATIVE (Negative); SARS COV2 PCR INHOUSE NEGATIVE (Negative)
[2025-02-07 15:34] VITALS: BP 137/94; PULSE 122; RESP 20; TEMP 36.6; O2SAT 98
--- OUTSIDE RECORDS SUMMARY | 2025-02-07 18:05 | XMS_ITS | Clinical Summary ---
Author Organization [facility] Address [address] [place] [address] Care Team Providers Care Locksmith Helper Name Role Phone Nracisa Choudhury MD Primary Care Provider + Source Comments Please note that some or all of the patient's information could have additional privacy protections. State laws allow health care providers to render certain types of treatment to minors without parental consent. Please do not assume that this information can be shared solely by obtaining just the consent of the patient's parent/guardian. Please determine if all or part of the patient's care was rendered without parent/guardian involvement. And, if so, obtain the minor's consent prior to disclosure.[facility] Allergies Active Allergy Reactions Criticality Noted Date Comments Amoxicillin Hives 11/03/2018 Cefprozil 11/03/2018 Other (Environmental) 08/04/2017 Shellfish Rash Low 11/03/2018 Medications desogestrel-ethiny l estradiol (APRI) 0.15-0.03 mg per tablet Take by mouth Active promethazine (PHENERGAN) 12.5 MG tablet Take 1 tablet daily at bedtime 12/08/19 19 Active promethazine (PHENERGAN) 12.5 MG tabletIndications: Nausea Take 1 tablet, once daily at bedtime 15 tablet 04/22/19 20 Active Additional Information Patient not taking.Reported on 07/28/2020 FLUoxetine (PROZAC) 40 MG capsule TAKE 1 CAPSULE(40 MG) BY MOUTH DAILY 07/26/19 21 Active ondansetron (ZOFRAN-ODT) 4 MG disintegrating tablet Take 4 mg by mouth every 8 (eight) hours as needed for Nausea PRN Active Active Problems No known active problems Family History Medical History Relation Name Comments Inflammatory bowel disease Mother Multiple sclerosis Mother Relation Name Status Comments Mother Social History Tobacco Use Types Packs/Day Years Used Date Smoking Tobacco: Never Other Needs Answer Date Recorded Anything else about your child you'd like help w ith? Not on file 11/01/2022 Share good news about positive changes: Not on f ile 11/01/2022 Comments No Sex and Gender Information Value Date Recorded Sex Assigned at Not on file Legal Sex Female 4:06 PM EDT Gender Identity Not on file Sexual Orientation Not on file Last Filed Vital Signs Vital Sign Reading Time Taken Comments Blood Pressure 109/65 07/28/2020 2:06 PM EDT Pulse 92 07/28/2020 2:06 PM EDT Temperature - - Respiratory Rate - - Oxygen Saturation - - Inhaled Oxygen Concentration - - Weight 62.9 kg (138 lb 10.7 oz) 07/28/2020 2:06 PM EDT Height 159.6 cm (5' 2.84 ) 07/28/2020 2:06 PM ED T Body Mass Index 24.69 07/28/2020 2:06 PM EDT Plan of Treatment Health Maintenance Due Date Last Done Comments DTaP/TDAP/TD VACCINES (1 - Tdap) 2008 ADOLESCENT HIV SCREENING 2014 COVID-19 Vaccine (2 - 2024-2 6 season) 2024 06/15/2020 INFLUENZA (#1) 2024 NIRSEVIMAB VACCINES UNDER 8 MONTHS Aged Out No longer eligible b ased on patient's age to complete this topic Insurance [address] [address] [employer] [facility] ([employer]) Care Teams Locksmith Helper Relationship Specialty Start Date End Date Narcisa Choudhury MD [address] [place] [phone] PCP - General 10/28/18
--- OUTSIDE RECORDS SUMMARY | 2025-02-07 18:05 | XMS_ITS | Data Portability ---
Author Organization [place] - [facility], Allergy Address [address] [address] Care Team Providers Care Housing Relocation Name Role Phone BENEDICT FUENTES Primary Care Provider Assessment Encounter Date Assessment Date Assessment LastModified by Organization Details LastModified Time 08/16/2024 08/16/2024 1. Recurrent Acu te Tonsillitis With recurrent acute tonsillitis, my strategy involved a conservative approach. The current examination did not show significant tonsillar inflammation or lymphadenopathy, negating the necessity for further antibiotic therapy. Her history of multiple antibiotics likely resulted in dysbiosis exacerbating her IBS. Probiotics and lifestyle factors such as sufficient rest and nutrition were recommended to prevent recurrences. Surgical intervention remains a consideration only if severe symptoms recurred repeatedly. 2. Endometriosis, IBS, Lipedema These conditions remain clinically stable. Emphasis is placed on managing her IBS through probiotics, avoiding unnecessary antibiotics, and continuing with dietary measures. These conditions did not necessitate alteration in care during today's visit. [email or web address] Not available 08/16/2024 14:49:28 09/01/2024 09/01/2024 1. Recurrent Streptococcal Pharyngitis The patient presents with recurrent episodes since April. There is consideration for a tonsillectomy to reduce antibiotic use. Risks were discussed, including surgical pain and potential postoperative complications. Surgical scheduling is advised for procedure evaluation. 2. Irritable Bowel Syndrome (IBS) Current management includes ondansetron and probiotics. Ongoing monitoring of gastrointestinal symptoms continues, integrating current treatment to manage exacerbations alongside potential interconnected upper GI symptoms. [email or web address] Not available 09/01/2024 11:46:43 Plan of Treatment Reminders Order Date Submit Date Provider Last Modified By Organization Details Last Modified Time Details Appointments None recorded. Lab None recorded. Referral None recorded. Procedures None recorded. Surgeries tonsillecto my (SURG) 2024 025 [email or web address] Not available 14:19:37 Imaging None recorded. Medication Orders None recorded. Patient TargetsNo targets recorded. Patient Instructions Encounter Date Encounter Id Patient Instructions Last Modified By Organization Details Last Modified Time 08/16/2024 [id number] Please note: Parts of this encounter note have been generated by AI based on audio conversation. Patient consent was required prior to utilizing this technology. Content review was required prior to finalizing the note. [email or web address] Not available 08/16/2024 14:49:28 09/01/2024 [id number] Please note: Parts of this encounter note have been generated by AI based on audio conversation. Patient consent was required prior to utilizing this technology. Content review was required prior to finalizing the note. [email or web address] Not available 09/01/2024 11:46:43 Reason for Referral None Reported. Results Created Date Observation Date Name Description Value Unit Range Abnormal Flag Note LastModifiedBy Organization Detail LastModifiedTime Result Notes None recorded. Problems Name Problem SNOMED Code Status Onset Date Resolution Date Notes Provider Name and Address Organization Details Recorded Time Tonsillitis 59889794 Active 025 WILLIS PINZON MD [address] [place] [address], [phone], [place] - [facility] 5 14:49:16 Chronic tonsillitis 08680678 Active 025 WILLIS PINZON MD [address] [place] [address], [phone], [place] - [facility] 5 11:14:20 Problem Notes None recorded. Procedures Surgical History Date Name Laterality Status Provider Name and Address Organization Details Recorded Time 12/28/19 25 tonsillectomy completed WILLIS PINZON MD [address] [place] [address], [phone], [place] - [facility] 12/27/2024 13:44:47 12/28/19 25 TONSILLECTOMY (SURG) completed Erick Giles [place] - [facility] 12/28/2024 12:35:30 11/10/20 25 TONSILLECTOMY (SURG) completed Erick Giles [place] - [facility] 12/28/2024 12:35:53 Imaging Results None recorded. Procedure Notes None recorded. Medical Equipment None Reported. Allergies Allergen ID Allergen Name Allergen Category Reaction Reaction Severity Criticality Documentation Date Start Date Code Code System Note Provider Name and Address Organization Details Recorded Time 803171 amoxicill in medicatio n Not available Not available Not available 08/16/2024 723 RxNorm LUIS CARLOS goldstein [place] - [facility] 14:17:56 Medications Name Sig Start Date Stop Date Status Note LastModified by Organization Details LastModified Time Anti-Diarrh eal (loperamide ) 2 mg tablet PLEASE SEE ATTACHED FOR DETAILED DIRECTION S active Not Available Not Available No t Available doxycycline hyclate 100 mg capsule TAKE 1 CAPSULE BY MOUTH TWICE A DAY FOR 10 DAYS 08/16 completed Not Available Not Available Not Available clindamycin HCl 300 mg capsule TAKE 1 CAPSULE BY MOUTH THREE TIMES A DAY FOR 10 DAYS 08/16 completed Not Available Not Available Not Available azithromyci n 250 mg tablet TAKE 2 TABLETS BY MOUTH TODAY, THEN TAKE 1 TABLET DAILY FOR 4 DAYS DIRECTED 08/16 completed Not Available Not Available Not Available Lidocaine Viscous 2 % mucosal solution MIX 5 ML WITH 5ML WATER AND GARGLE AND SPIT OUT 3- 4 TIMES A DAY NEEDED FOR PAIN X 7 DAYS 08/16 completed Not Available Not Available Not Available fluconazole 150 mg tablet TAKE 1 TABLET BY MOUTH ONCE FOR 1 DAY.MAY REPEAT DOSE IN 72 HOURS IF SYMPTOMS PERSIST active Not Available Not Available No t Available prochlorper azine maleate 5 mg tablet PLEASE SEE ATTACHED FOR DETAILED DIRECTION S active Not Available Not Available No t Available ondansetron 8 mg disintegrat ing tablet DISSOLVE 1 TABLET (8 MG TOTAL) ON TOP OF THE TONGUE EVERY 8 HOURS NEEDED FOR NAUSEA AND VOMITING active Not Available Not Available No t Available estradiol 0.5 mg tablet TAKE 1 TABLET BY MOUTH EVERY DAY FOR 5 DAYS IF HAVING BREAKTHRO UGH BLEEDING active Not Available Not Available No t Available ondansetron 4 mg disintegrat ing tablet TAKE 1 TABLET BY MOUTH EVERY 6 HOURS NEEDED FOR NAUSEA AND VOMITING active Not Available Not Available No t Available Vyfemla (28) 0.4 mg-35 mcg tablet TAKE 1 TABLET BY MOUTH DAILY,X21 DAYS,INST R:SKIP PLACEBOS & START NEXT PACK. active Not Available Not Available No t Available Vitals Date Recorded Body height Body mass index (BMI) Body weight Provider Name and Address Organization Details Last Updated DateTime 08/16/2024 160.02 cm 31 kg/m2 14728.66 g [facility] [place] - [facility] 08/16/2024 14:17:31 Date Recorded Body height Provider Name an d Address Organization Details Last Updated DateTime 09/01/2024 160.02 cm [facility] [place] [facility] 09/01/2024 10:51:08 Social History None recorded. Functional Status Question Answer Note LastModified by Organization D etails LastModified Time What is your level of alcohol consumption? None [email or web address] Information not available 08/16/2024 Mental Status None recorded. Family History Nothing Reported. Medical History Condition Response Anxiety Y Headaches Y Gynecological HistoryNo gynecological history recorded. Obstetrics History GPAL:G 0 P 0 0 0 0 Past Encounters Encounter ID Performer Location Encounter Start Date Encounter Closed Date Diagnosis/Indication Diagnosis SNOMED-CT Code Diagnosis ICD10 Code Diagnosis IMO Codes Diagnosis Note [id number] WILLIS PINZON MD [facility] [address] [phone] 08/16/2024 13:59:10 08/16/2024 15:21:11 Tonsillitis 44065226 J03.91 [id number] WILLIS PINZON MD [facility] [address] [address] 09/01/2024 10:43:53 09/01/2024 11:22:27 Chronic tonsillitis 55893076 J35.01 479418 The patient meets criteria for tonsillect beti. The surgery will be done under general anesthesia with no cuts through the skin. After the surgery the patient should expect temporary bad breath, ear aches, still neck and the worst sore throat of their life. It will typically last up to 2 weeks. There is a 5% risk of bleeding during the healing process when the scab falls off. If this occurs, they are encouraged to call the office to discuss management . Occasional ly it requires a trip to the emergency room and or operating room to control the bleeding. Additional risks of dehydratio n, hospital readmissio n, throat pain, voice change, swallowing dysfunctio n and velopharyn geal insufficie ncy are also possible. Pain control with alternatin g doses of Tylenol (acetamino phen) and Motrin (ibuprofen ) around-the -clock every 3 hours are recommende d. Use of narcotics and antibiotic s are not recommende d. Usually 1 week out of school or work is needed to recover, and then they may return with light activities for an additional week before resuming regular routine. They will contact our office to schedule at a mutually convenient time. All questions were answered. Health Concerns Section Related Observation LastModified by Organization Detai ls LastModified Time None Recorded Concern Status LastModified by Organization Details LastModified Time None Recorded Advance Directives Directive None Recorded Payers Insurance Date Sequence Insurance Name Policy Number Policy Isidro Covered Member ID Isidro Member ID Guarantor Name 12/24/2024 1 [facility] (MEDICAID REPLACEMENT - HMO) [place] Darcie Mendoza Malinda [id number] Kathy Petty Notes Date Note Type Note Provider Name and Address Organization Details Recorded Time 08/16/2024 text/html tonsillitis The patient is a 23-year-old female presenting with recurrent acute tonsillitis, recurring since April when she first experienced streptococcal pharyngitis. She has been treated with multiple courses of antibiotics such as azithromycin, clindamycin, and doxycycline, but experienced recurrent symptoms soon after cessation of each course. Initially, the condition manifested with mild sore throat, nasal stuffiness, and systemic symptoms including chills and myalgias, although these symptoms did not persist. She underwent numerous swabbing and continued antibiotic treatments due to recurring positive cultures. Following extensive antibiotic regimens, gastrointestinal problems developed, causing vomiting and intolerance. 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 The patient's medical background is significant for endometriosis, IBS, and lipedema, which further complicate her management. IBS, in particular, has been aggravated by these antibiotic courses. WILLIS PINZON MD [address] [place] [address], [phone], [place] - [facility] 08/16/2024 14:50:46 09/01/2024 text/html tonsillitis The patient is a 23-year-old female presenting with recurrent streptococcal pharyngitis, having experienced six episodes since April. The current episode, beginning on a Friday, involves a sore throat, left-sided throat and ear pain, and noted ulceration on the left superior tonsil. The patient accidentally caused bleeding when brushing teeth, which further aggravated her throat soreness. Accompanying symptoms include gastrointestinal distress, with diarrhea and vomiting reported, hence impacting both comfort and functional status. She has missed work for two days due to the severity and impact of these symptoms, which have been chronically severe and inconvenient, interrupting daily life. Despite being on azithromycin for the detected streptococcal test a course recently started t he patient describes her symptoms worsening, with possible viral etiology being considered for the present inflammation seen in less pus-covered, swelling tonsils. Ongoing IBS manifests concurrently, triggering or worsening gastrointestinal symptoms, with probiotics and ondansetron used to manage nausea. The possibility of surgical intervention, specifically a tonsillectomy, was discussed with consideration given to reducing her monthly reliance on antibiotics. Contrarily, as surgery comes with inherent risks, benefits must invariably be weighed against her non-resolution of contributing or peripheral symptoms and potential complications related to her double diagnosis of pharyngitis and IBS. WILLIS PINZON MD [address] [place] [address], [place], [phone], [facility] - [facility] 09/01/2024 11:47:47 OBGyn Episode No OBEpisode recorded.
--- OUTSIDE RECORDS SUMMARY | 2025-02-07 18:05 | XMS_ITS | Clinical Summary ---
Author Organization [facility] Address [address] [place] [address] Phone Care Team Providers Care Commercial Tire Service Technician Name Role Phone Dinorah Bowden MD Primary Care Provider Allergies Active Allergy Reactions Criticality Noted Date Comments Amoxicillin 09/02/2023 Cefprozil 09/02/2023 Medications psyllium husk (METAMUCIL ORAL) 09/02/19 24 Active meclizine (ANTIVERT) 12.5 mg tablet Take 1 Tablet by mouth as needed (dizziness). 09/02/19 24 Active Vyfemla, 28, 0.4-35 mg-mcg per tablet TAKE 1 TABLET BY MOUTH DAILY,X21 DAYS,INSTR:SKIP PLACEBOS & START NEXT PACK. 08/06/19 25 Active mefenamic acid 250 mg capsule Take 250 mg by mouth. 03/05/19 23 Active estradioL (ESTRACE) 0.5 mg tablet TAKE 1 TABLET BY MOUTH EVERY DAY FOR 5 DAYS IF HAVING BREAKTHROUGH BLEEDING Active ondansetron ODT (ZOFRAN-ODT) 8 mg disintegrating tabletIndications: Nausea Dissolve 1 tablet (8 mg total) on top of the tongue every 8 (eight) hours if needed for nausea or vomiting. 20 tablet 01/29/20 25 Active ondansetron ODT (ZOFRAN-ODT) 8 mg disintegrating tabletIndications: Nausea Dissolve 1 tablet (8 mg total) on top of the tongue every 8 (eight) hours if needed for nausea or vomiting. 20 tablet 3 07/21/19 25 025 Discontin ued(Reord er) Active Problems Problem Noted Date Diagnosed Date Constipation 09/02/2023 Endometriosis 09/02/2023 IBS (irritable bowel syndrome) 09/02/2023 Lymphedema 09/02/2023 Vasovagal syncope 09/02/2023 Encounters Date Type Department Care Team Description 01/28/2025 2:15 PM EST Office Visit [facility] [address] [phone] Ramana Huerta, LILI Diarrhea, unspecified type (Primary Dx); Upper respiratory symptom; Nausea; Fever, unspecified fever cause 12/20/2024 2:00 PM EST Office Visit Walk[facility] [phone] Yesi Mohan NP Viral URI (Primary Dx); Sore throat 11/18/2024 4:45 PM EDT Office Visit [facility] [address] [phone] Yesi Mohan NP Strep pharyngitis (Primary Dx) 11/18/2024 Telephone [facility] [address] [phone] Sonu Love 11/17/2024 1:15 PM EDT Office Visit [facility] [address] [phone] Yesi Mohan NP Viral URI (Primary Dx) 11/17/2024 Telephone [facility] [address] [phone] Sonu Love 11/15/2024 1:30 PM EDT Office Visit [facility] [address] [phone] Maxwell Newsome NP Symptoms of upper respiratory infection (URI) (Primary Dx); Strep pharyngitis from Last 3 Months Surgical History Surgery Date Site/Laterality Comments APPENDECTOMY PROCEDURE: HISTORICAL APPENDECTOMY Family History Medical History Relation Name Comments Other: IBS Brother Emphysema Father Glaucoma Father Lung cancer Maternal Grandfather Other: heart disease Maternal Grandfather Hyperlipidemia Maternal Grandmother Crohn's disease Mother Hypertension Mother Multiple sclerosis Mother Other: adenomyosis Mother Other: thyroid cancer Mother Other: trigeminal neuralgia Mother Dementia Paternal Grandfather Hyperlipidemia Paternal Grandfather Multiple sclerosis Paternal Grandmother Other: aortic aneurysm Paternal Grandmother Other: ckd Paternal Grandmother Relation Name Status Comments Brother Father Maternal Grandfather Maternal Grandmother Alive Mother Paternal Grandfather Paternal Grandmother Social History Tobacco Use Types Packs/Day Years Used Date Smoking Tobacco: Never Assessed Comments No Sex and Gender Information Value Date Recorded Sex Assigned at Not on file Legal Sex Female 11:46 AM EST Gender Identity Not on file Sexual Orientation Not on file Last Filed Vital Signs Vital Sign Reading Time Taken Comments Blood Pressure 137/70 01/28/2025 2:06 PM EST Pulse 77 01/28/2025 2:06 PM EST Temperature 37.4 C (99.3 F) 01/28/2025 2:06 PM EST Respiratory Rate 20 11/17/2024 1:24 PM EDT Oxygen Saturation 98% 01/28/2025 2:06 PM EST Inhaled Oxygen Concentration - - Weight 83.9 kg (185 lb) 08/25/2024 9:19 AM EDT Height 160 cm (5' 3 ) 08/25/2024 9:19 AM EDT Body Mass Index 32.77 08/25/2024 9:19 AM EDT Plan of Treatment Health Maintenance Due Date Last Done Comments Gonorrhea/Chlamydia Screening 2001 Pneumococcal Vaccine: Pediatrics (0 to 5 Years) and At-Risk Patients (6 to 49 Years) (1 of 1 - PPSV23, PCV20, or PCV21) 12/27/2007 04/01/2003, 06/24/2002, 04/26/2002, Additional history exists Meningococcal B Vaccine (1 of 2 - Standard) 2017 HIV Screening 01/15/2022 Hepatitis C Screening 01/15/2022 Social Influencers of Health Screening 01/15/2022 Cervical Cancer Screening: Pap Smear 2022 DTaP,Tdap,and Td Vaccines (7 - Td or Tdap) 02/24/2023 02/24/2013, 03/24/2007, 04/01/2003, Additional history exists Depression Screening 02/18/2024 COVID-19 Vaccine (4 - season) 2024 02/08/2021, 07/19/2020, 06/15/2020 Influenza Vaccine (#1) 2024 , 01/07/2020, 11/24/2018 RSV Immunization Adult Patients (1 - 1-dose 75+ series) 2076 Hepatitis B Vaccines Completed 10/01/2002, 01/29/2002, 2001 HIB Vaccines Completed 04/01/2003, 09/2002, 04/26/2002, Additional history exists MMR Vaccines Completed 01/23/2006, 12/28/2002 Varicella Vaccines Completed 01/23/2006, 12/28/2002 IPV Vaccines Completed 03/24/2007, 09/17, 04/26/2002, Additional history exists HPV Vaccines Completed 05/02/2016, 12/18, 10/30/2015 Meningococcal ACWY Vaccine Completed 01/13/2018, Hepatitis A Vaccines Completed 01/21/2019, 01/14/20 18 RSV Immunization Patients Under 20 months Aged Out No longer eligible based on patient's age to complete this topic Procedures Procedure Name Priority Date/Time Associated Diagnosis Comments POC RAPID STREP A Routine 01/28/2025 2:3 9 PM EST Upper respiratory symptom POC INFLUENZA A/B Routine 01/28/2025 2:3 0 PM EST Upper respiratory symptom POC RAPID [id number], MOLECULAR Routine 01/28/2025 2:29 PM EST Upper respiratory symptom POC RAPID STREP A Routine 12/20/2024 3:3 7 PM EST Viral URI POC RAPID [id number], MOLECULAR Routine 12/20/2024 3:37 PM EST Viral URI POC INFLUENZA A/B Routine 11/17/2024 2:0 3 PM EDT Viral URI POC RAPID [id number], MOLECULAR Routine 11/17/2024 2:02 PM EDT Viral URI POC RAPID [id number], MOLECULAR Routine 11/15/2024 1:35 PM EDT Symptoms of upper respiratory infection (URI) POC RAPID STREP A Routine 11/15/2024 1:2 9 PM EDT Symptoms of upper respiratory infection (URI) from Last 3 Months Results * POC rapid strep A manually resulted (01/28/2025 2:39 PM EST) Only the most recent of3 resultswithin the time period is included. [facility] Rapid Strep A Screen POC Negative Negative Swab Structure of anterior region of neck / Unknown 01/28/2025 2:39 PM EST Ramana Huerta NP POINT OF CARE TEST ENTER/EDIT ORDERABLES Final Result * POC Influenza A/B manually resulted (01/28/2025 2:30 PM EST) Only the most recent of2 resultswithin the time period is included. [facility] Rapid Influenza A AGN POC Negative Negative Swab 01/28/2025 2:30 PM EST Ramana Huerta NP POINT OF CARE TEST ENTER/EDIT ORDERABLES Final Result * Poc Rapid [id number], MOLECULAR (01/28/2025 2:29 PM EST) Only the most recent of4 resultswithin the time period is included. [facility] COVID-19/SARS- COV-2 Rapid POC Negative Negative Swab Nasopharyngeal structure / Unknown 01/28/2025 2:29 PM EST Ramana Huerta NP POINT OF CARE TEST ENTER/EDIT ORDERABLES Final Result from Last 3 Months Insurance [facility] Care Teams Commercial Tire Service Technician Relationship Specialty Start Date End Date Dinorah Bowden MD [address] [place] [phone] PCP - General 05/29/23
--- OUTSIDE RECORDS SUMMARY | 2025-02-07 18:05 | XMS_ITS | Encounter Summary ---
[place] [address] Care Team Providers Care Solid Waste Manager Name Role Phone Narcisa Choudhury MD Primary Care Provider + Reason for Visit * Reason Comments Medication Refill Encounter Details Date Type Department Care Team ([facility] st Contact Info) Description 12/24/2018 Refill [facility] Gastroenterology[address] [phone] Danette Valdez MD [address] [place] [address] Periumbilical abdominal pain Social History Tobacco Use Types Packs/Day Years Used Date Smoking Tobacco: Never Comments No Sex and Gender Information Value Date Recorded Sex Assigned at Not on file Legal Sex Female 4:06 PM EDT Gender Identity Not on file Sexual Orientation Not on file documented as of this encounter Miscellaneous Notes * Telephone Encounter - Vivien Leyva RN - 12/29/2018 2:58 PM EST Last visit:12/07/18 Next visit: 01/22/19 Weight :69.3kg Allergies: reviewed Current dose: Famotidine 20 mg po BID documented in this encounter Plan of Treatment Not on file documented as of this encounter Visit Diagnoses Diagnosis Periumbilical abdominal pain Abdominal pain, periumbilic documented in this encounter Care Teams Solid Waste Manager Relationship Specialty Start Date End Date Narcisa Choudhury MD [address] [place] [phone] PCP - General 10/28/18 documented as of this encounter
--- OUTSIDE RECORDS SUMMARY | 2025-02-07 18:05 | XMS_ITS | Encounter Summary ---
Author Organization [facility] Address [address] [place] [address] Care Team Providers Care Quill Machine Tender Name Role Phone Narcisa Choudhury MD Primary Care Provider + Reason for Visit * Reason Comments Medication Refill Encounter Details Date Type Department Care Team (Late st Contact Info) Description 02/13/2019 Refill [facility] Gastroenterology, [place] [address] [place] [address] Danette Valdez MD [address] [place] [phone] Nausea Social History Tobacco Use Types Packs/Day Years Used Date Smoking Tobacco: Never Comments No Sex and Gender Information Value Date Recorded Sex Assigned at Not on file Legal Sex Female 4:06 PM EDT Gender Identity Not on file Sexual Orientation Not on file documented as of this encounter Miscellaneous Notes * Telephone Encounter - Destiney Barraza RN - 02/15/2019 8:51 AM EST Last visit-01/22/19 Next visit-04/01/19 Weight-70.2 kg Current dose-correct as noted Allergies-reviewed documented in this encounter Plan of Treatment Not on file documented as of this encounter Visit Diagnoses Diagnosis Nausea Nausea alone documented in this encounter Care Teams Quill Machine Tender Relationship Specialty Start Date End Date Narcisa Choudhury MD [address] [place] [phone] PCP - General 10/28/18 documented as of this encounter
== END 2025-02-07 15:35 | disposition home or self-care (01) ==
PROVIDERS: Physician Assistant; Emergency Provider Emergency Medicine; PCP Student in an Organized Health Care Education/Training Program
DX: J06.9 Acute upper respiratory infection, unspecified (principal); R07.89 Other chest pain; R05.9 Cough, unspecified; R04.2 Hemoptysis; Z03.818 Encounter for observation for suspected exposure to other biological agents ruled out
CPT/HCPCS: 36415; 71046; 80053; 84484; 84702; 85025; 85379; 85610; 85730; 87637; 87651; 93005; 99283

== ENCOUNTER → 2025-02-07 14:01 | Outpatient (BNV) | payer OTHER, SELFPAY | PROVIDERS: Emergency Provider Emergency Medicine; PCP Student in an Organized Health Care Education/Training Program; Visit Provider Internal Medicine Cardiovascular Disease | DX: R00.0 Tachycardia, unspecified (principal) | CPT/HCPCS: 93010 ==

== ENCOUNTER → 2025-02-07 14:10 | Outpatient (BNV) | payer OTHER, SELFPAY | PROVIDERS: Emergency Provider Emergency Medicine; PCP Student in an Organized Health Care Education/Training Program; Visit Provider Radiology Diagnostic Radiology | DX: R07.9 Chest pain, unspecified (principal); R05.9 Cough, unspecified | CPT/HCPCS: 71046 ==